=== PATIENT | female | born 1995 | race Caucasian/White ===

== ENCOUNTER 2022-01-16 08:35 | Inpatient (IN) | payer BC ==
[2022-01-16 09:02] VITALS: BMI 27.1
[2022-01-16 09:39] LABS: Fetal Membranes Rupture RUPTURE DETECTED (No Rupture)
[2022-01-16] MEDS ORDERED: hydrALAZINE 20 MG/ML VIAL SLOW IVP PRN ×2 (09:58→16:50)
[2022-01-16] MEDS ORDERED: Ibuprofen 800 MG TAB PO PRN (09:58)
[2022-01-16] MEDS ORDERED: Ondansetron PF 4 MG/2 ML Vial IVP PRN ×2 (09:58→12:00)
[2022-01-16] MEDS ORDERED: Promethazine HCl 25 MG/ML VIAL IM PRN ×2 (09:58→12:00)
[2022-01-16] MEDS ORDERED: Butorphanol Tartrate 1 MG/ML VIAL SLOW IVP PRN (09:58)
[2022-01-16] MEDS ORDERED: HYDROcodone/Acetaminophen 5/325 mg Tablet PO PRN ×3 (09:58→16:50)
[2022-01-16] MEDS ORDERED: Lidocaine 1% (PF) 30 ML VIAL SC PRN (09:58)
[2022-01-16] MEDS ORDERED: Lactated Ringer's 1,000 ML IV SCH (10:00)
[2022-01-16] MEDS ORDERED: NS w/ Oxytocin 30 units 500 ML IV SCH ×2 (10:00→16:50)
[2022-01-16] MEDS ORDERED: Fentanyl 2 mcg/Bup 0.1% Cadd 100 ML ONE (10:49)
[2022-01-16 10:50] LABS: Hemoglobin 11.9 g/dL (12.0-15.5); Mean Corpuscular HGB CONC 33.6 g/dL (32.0-36.0); Mean Corpuscular Hemoglobin 29.9 pg (27.0-33.0); Mean Corpuscular Volume 88.9 fl (81.6-98.3); Mean Platelet Volume 10.5 fl (7.4-10.4); Platelet Count 258 10x3/uL (150-450); RBC Distribution Width 12.6 % (11.5-14.5); Red Blood Cell (RBC) Count 3.98 10x6/uL (3.90-5.03); White Blood Cell (WBC) Count 13.4 10x3/uL (3.5-10.5)
[2022-01-16 11:20] LABS: Syphilis Antibody Nonreactive (Nonreactive)
[2022-01-16 11:24] LABS: Hep B Surf Ag Non-Reactive S/CO (NonReactive)
[2022-01-16 11:33] LABS: HBSAg Index 0.18 S/CO (0-0.99)
[2022-01-16] MEDS ORDERED: Moisturizing Cream (Eucerin) 113 GM JAR TOP PRN (12:00)
[2022-01-16] MEDS ORDERED: Acetaminophen 325 MG TAB PO PRN (12:00)
[2022-01-16] MEDS ORDERED: ePHEDrine Sulfate 50 MG/10 ML VIAL SLOW IVP PRN (12:00)
[2022-01-16] MEDS ORDERED: Naloxone HCl 0.4 mg/ml Vial IVP PRN ×2 (12:00)
[2022-01-16] MEDS ORDERED: Communication Order-Pharmacy FS SCH (12:00)
[2022-01-16] MEDS ORDERED: Fentanyl 2 mcg/Bupivacaine 0.1% Cassette 100 ML EPIDURAL SCH (12:00)
[2022-01-16] MEDS ORDERED: diphenhydrAMINE 50 MG/ML VIAL IVP PRN (12:00)
[2022-01-16] MEDS ORDERED: Lactated Ringer's 500 ML IV PRN (12:08)
[2022-01-16 13:00] LABS: SARS-CoV-2 NAA Rapid Test Not Detected (NotDetected)
[2022-01-16] MEDS ORDERED: NS w/ Oxytocin 30 units 500 ML ONE (15:22)
[2022-01-16] MEDS ORDERED: Milk Of Magnesia 30 ML UDCUP PO PRN (16:50)
[2022-01-16] MEDS ORDERED: Boostrix 0.5 ML (Tdap) VIAL IM ONE (16:50)
[2022-01-16] MEDS ORDERED: Misoprostol 200 MCG TAB VAG PRN (16:50)
[2022-01-16] MEDS ORDERED: Bisacodyl 10 MG SUPP PR PRN (16:50)
[2022-01-16] MEDS ORDERED: Benzocaine-Menthol 82.5 ML CAN TOP PRN (16:50)
[2022-01-16] MEDS ORDERED: diphenhydrAMINE 25 MG CAP PO PRN (16:50)
[2022-01-16] MEDS: Ferrous Sulfate 325 MG TAB PO SCH (17:44)
[2022-01-16] MEDS: Ibuprofen 800 MG TAB PO SCH ×2 (17:46→18:13)
[2022-01-16] MEDS: Docusate 100 MG CAP PO SCH (21:38)
[2022-01-17] MEDS: Ibuprofen 800 MG TAB PO SCH ×3 (00:35→18:25)
[2022-01-17] MEDS: Ferrous Sulfate 325 MG TAB PO SCH ×2 (07:53→13:43)
[2022-01-17] MEDS: Prenatal Vitamin 1 TAB PO SCH (10:25)
[2022-01-17] MEDS: Docusate 100 MG CAP PO SCH ×2 (10:25→21:25)
[2022-01-18 07:29] VITALS: BP 121/71; TEMP 98.1
[2022-01-18] MEDS: Ferrous Sulfate 325 MG TAB PO SCH ×2 (07:42→13:46)
[2022-01-18] MEDS: Ibuprofen 800 MG TAB PO SCH ×3 (07:42→16:47)
[2022-01-18] MEDS: Prenatal Vitamin 1 TAB PO SCH (07:44)
[2022-01-18] MEDS: Docusate 100 MG CAP PO SCH (07:45)
== END 2022-01-18 17:00 | disposition home or self-care (01) | DRG 807 ==
LOC: CSHLD/OP 08:35 → CSHLD 10:47 → CSHPP 17:25
PROVIDERS: ADMIT Obstetrics & Gynecology; ATTEND Obstetrics & Gynecology
PROC: 10E0XZZ Delivery of Products of Conception, External Approach (ICD-10-PCS; principal; 2022-01-17)
PROC: 0KQM0ZZ Repair Perineum Muscle, Open Approach (ICD-10-PCS; 2022-01-17)
DX: O42.02 Full-term premature rupture of membranes, onset of labor within 24 hours of rupture (principal); Z37.0 Single live birth; Z3A.38 38 weeks gestation of pregnancy; Z20.822 Contact with and (suspected) exposure to COVID-19; O70.1 Second degree perineal laceration during delivery
CPT/HCPCS: 36415; 51702; 84112; 85027; 86780; 86850; 86900; 86901; 87340; 99285; J7120; U0002

== ENCOUNTER 2023-04-05 23:21 | Emergency (ER) | payer BC ==
[2023-04-06] MEDS ORDERED: Ondansetron PF 4 MG/2 ML Vial ONE (00:46)
[2023-04-06 01:06] LABS: #Basophils 0.1 10x3/uL (0.0-0.2); #Monocytes 0.6 10x3/uL (0.0-1.1); #Neutrophils 14.2 10x3/uL (1.5-8.4); %Basophils 0.4 % (0.0-2.0); %Eosinophils 0.1 % (0.0-6.0); %Lymphocytes 4.5 % (18.0-47.0); %Monocytes 3.7 % (0.0-10.0); %Neutrophils 90.9 % (40.0-75.0); Hematocrit 40.7 % (34.9-44.5); Mean Corpuscular HGB CONC 34.4 g/dL (32.0-36.0); Mean Corpuscular Hemoglobin 30.8 pg (27.0-33.0); Mean Corpuscular Volume 89.6 fl (81.6-98.3); Mean Platelet Volume 9.3 fl (7.4-10.4); Platelet Count 241 10x3/uL (150-450); RBC Distribution Width 12.7 % (11.5-14.5); Red Blood Cell (RBC) Count 4.54 10x6/uL (3.90-5.03); White Blood Cell (WBC) Count 15.6 10x3/uL (3.5-10.5)
[2023-04-06 01:15] LABS: Anion Gap 13 mmol/L (10-20); BUN (Urea Nitrogen) 10 mg/dL (7.0-18.7); Calc. Creatinine Clearance 0 mL/min (70-130); Carbon Dioxide 21 mmol/L (22-29); Chloride 106 mmol/L (98-107); Estimated GFR 120; Glucose 116 mg/dL (70-105); Potassium 3.7 mmol/L (3.5-5.1); Sodium 136 mmol/L (136-145)
== END 2023-04-06 01:57 | disposition home or self-care (01) ==
LOC: CSHERS 23:21
DX: O21.9 Vomiting of pregnancy, unspecified (principal); Z3A.13 13 weeks gestation of pregnancy
CPT/HCPCS: 80048; 85025; 99284; J2405